=== PATIENT | male | born 1940 | race Caucasian/White ===

== ENCOUNTER 2017-05-28 00:34 | Inpatient (IN) | payer OTHER ==
--- NOTE | 2017-05-28 00:44 | EDPHY ---
H & P Time Seen by Provider: 05/28/17 00:44 HPI/ROS: Chief Complaint: Chest pain HPI: 76-year-old male with a past medical history of coronary artery disease and a LAD stent began having substernal chest pain at about 11 o'clock this evening while in bed. Pain was a 7 8/10. Was in his left chest and he felt some aching in the back of his left arm. Some mild shortness of breath and felt diaphoretic at that time. Patient called EMS. On arrival there [address] elevations in V1 to with depressions in the lateral leads and inferior leads. Cardiac alert was called. He was given 325 mg of aspirin, 1 nitroglycerin sublingual at 12:05 p.m. by EMS. Now the patient states the discomfort is down to about a 2/10. No recent illness. No fevers or chills. No nausea or vomiting or diarrhea. He did have a recent knee replacement 3 weeks ago. He has not had any recent pleuritic chest pain or shortness of breath. ROS: 10 point Review of Systems is negative except as noted in the HPI. PMH: Coronary artery disease, status post stenting, hyperlipidemia, hypertension Social History: No smoking, no alcohol, no recreational drug use Family History: non-contributory Physical Exam: Gen: Awake, Alert, No Distress HEENT: Nose: no rhinorrhea Eyes: PERRLA, EOMI Mouth: Moist mucosa Neck: Supple, no JVD Chest: nontender, lungs clear to auscultation Heart: S1, S2 normal, no murmur Abd: Soft, non-tender, no guarding Back: no CVA tenderness, no midline tenderness Ext: no edema, non-tender Skin: no rash Neuro: CN II-XII intact, Sensation grossly intact, Strength 5/5 in bilateral upper and lower extremities - Medical/Surgical History Hx Asthma: No Hx Chronic Respiratory Disease: No Hx Diabetes: Yes Hx Cardiac Disease: Yes Hx Renal Disease: No Hx Cirrhosis: No Hx Alcoholism: No Hx HIV/AIDS: No Hx Splenectomy or Spleen Trauma: No Other PMH: Bilateral TKA, HTN, hypothyroid - Social History Smoking Status: Never smoked Constitutional: Initial Vital Signs Temperature (C) 36.4 C 05/28/17 00:34 Heart Rate 84 05/28/17 00:34 Respiratory Rate 16 05/28/17 00:34 Blood Pressure 147/99 H 05/28/17 00:34 O2 Sat (%) 96 05/28/17 00:34 O2 Delivery Mode Nasal Cannula O2 (L/minute) 2 Allergies/Adverse Reactions: No Known Allergies Allergy (Unverified 01/29/10 18:16) Home Medications: Medication Instructions Recorded Aspirin [Aspirin 81mg (*)] 81 mg PO DAILY 10/16/15 Levothyroxine [Synthroid 88 mcg 88 mcg PO DAILY06 10/16/15 (*)] Pravastatin Sodium [Pravachol] 40 mg PO HS 10/16/15 Medical Decision Making - Diagnostics EKG Interpretation: ECG time 12:38 a.m., sinus rhythm with a rate of 85, normal axis, there are ST elevations in V1 through V3 with reciprocal changes in V4 through 6 and in leads 2 and AVF consistent with acute STEMI. There are normal intervals. Imaging Results: Chest x-ray shows no acute infiltrates, cardiac silhouette is normal. Interpreted by me. Imaging: I viewed and interpreted images myself ED Course/Re-evaluation: Patient arrived as a cardiac alert at 12:35 p.m.. Hemodynamics were normal. Patient's pain was a 2/10. I reviewed pre-hospital ECGs near consistent with acute anterior STEMI. 0038 ECG is done. Findings are consistent with acute STEMI. Patient pain is a 2/10. Hemodynamics are normal. 0040 Dr. Zarate, cardiology is present in the room. He has evaluated patient. Will take the patient to the laboratory animal caretaker. Chest x-ray shows normal cardiac silhouette, no focal infiltrates. No effusions. Departure - Departure Disposition: [facility] Inpatient Acute Clinical Impression: STEMI (ST elevation myocardial infarction) Condition: Serious Referrals: Patient,NotPresent [Primary Care Provider] - As per Instructions
[2017-05-28] MEDS ORDERED: LIDOCAINE 1% 300 MG/30 ML SDV ONE (00:50)
[2017-05-28] MEDS ORDERED: MIDAZOLAM 2 MG/2 ML VIAL ONE ×3 (00:50→01:34)
[2017-05-28] MEDS ORDERED: fentaNYL 100 MCG/2 ML INJ ONE ×2 (00:50→01:34)
[2017-05-28] MEDS ORDERED: IOPAMIDOL (ISOVUE-370) 150 ML BTL IV ONE (00:51)
[2017-05-28] MEDS ORDERED: BIVALIRUDIN 250 MG/5 ML VIAL IV ONE (01:18)
[2017-05-28] MEDS ORDERED: TICAGRELOR 90 MG TAB ONE (01:57)
[2017-05-28 02:08] LABS: % IMMATURE GRANULYOCYTES 0.5 % (0.0-1.1); ABSOLUTE IMMATURE GRANULOCYTES 0.03 10^3/uL (0.00-0.10); ADD DIFF? NO; ADD MORPH? NO; ADD SCAN? NO; ATYPICAL LYMPHOCYTE FLAG 0 (0-99); FRAGMENT RBC FLAG 0 (0-99); HEMATOCRIT 35.1 % (40.0-51.0); HEMOGLOBIN 11.9 g/dL (13.7-17.5); LEFT SHIFT FLG 0 (0-99); LIPEMIA HEMOLYSIS FLAG 90 (0-99); MEAN CELL HEMOGLOBIN 30.6 pg (27.9-34.1); MEAN CELL HEMOGLOBIN CONCENTR. 33.9 g/dL (32.4-36.7); MEAN CELL VOLUME 90.2 fL (81.5-99.8); PLATELET CLUMPS FLAG 40 (0-99); PLATELET COUNT 132 10^3/uL (150-400); RED BLOOD CELL COUNT 3.89 10^6/uL (4.40-6.38); RED CELL DISTRIBUTION WIDTH 13.1 % (11.5-15.2)
[2017-05-28] MEDS ORDERED: TICAGRELOR 90 MG TAB PO ONE (02:13)
[2017-05-28] MEDS ORDERED: ATROPINE SULFATE 1 MG/10 ML SYR IVP PRN (02:13)
[2017-05-28] MEDS ORDERED: ASPIRIN EC 325 MG TAB PO ONE (02:13)
[2017-05-28] MEDS ORDERED: LORazepam 2 MG/ML INJ IVP PRN (02:13)
[2017-05-28] MEDS ORDERED: NITROGLYCERIN 0.4 MG BTL SL PRN (02:13)
[2017-05-28 02:26] LABS: ANION GAP 8 mEq/L (8-16); CALCIUM 7.9 mg/dL (8.5-10.4); CARBON DIOXIDE 21 mEq/l (22-31); CHLORIDE 107 mEq/L (97-110); CREATININE 1.1 mg/dL (0.7-1.3); GLOMERULAR FILTRATION RATE > 60; GLUCOSE 108 mg/dL (70-100); POTASSIUM 3.9 mEq/L (3.5-5.2); SODIUM 136 mEq/L (134-144)
--- NOTE | 2017-05-28 02:49 | CPEKG ---
Heart Rate: 74 RR Interval: 811 P-R Interval: 192 QRSD Interval: 74 QT Interval: 412 QTC Interval: 457 P [place]: 52 QRS [place]: 50 T Wave [place]: 83 EKG Severity - ABNORMAL ECG - EKG Impression: SINUS RHYTHM EKG Impression: CONSIDER ANTEROSEPTAL INFARCT Electronically Signed By: Mj Javier 28-May-2017 06:26:51
--- NOTE | 2017-05-28 05:38 | CPIP ---
[f rep st] INVASIVE CARDIAC PROCEDURE DATE OF PROCEDURE: 05/28/2017 PROCEDURE: 1. Coronary angiography. 2. Left ventriculography. 3. Stenting of left anterior descending coronary artery with Synergy drug-eluting stents. INDICATION: Acute anterior ST-segment elevation myocardial infarction. ACCESS: Patient was prepped and draped in sterile fashion. 1% lidocaine was used to anesthetize th e right inguinal region. A 6-Djiboutian introducer sheath was placed selectively into the right common femoral artery via modified Seldinger technique. CORONARY ANGIOGRAPHY: A 6-Djiboutian JL4 was advanced to the left main coronary artery and images obtai solomon. The left main coronary artery trifurcated into an LAD, ramus, and circumflex coronary arteries . The left main coronary artery had a discrete distal 40% stenosis present. The left anterior desc ending coronary artery was previously stented in the midvessel. The previously placed stent was wid guerline patent with mild in-stent restenosis. Just proximal to the stent, there was a single discrete 9 9% stenosis present. Just distal to the stent, there was a single discrete 50% stenosis present and in the mid to distal vessel, there is a single discrete 75% stenosis present. The ramus coronary a rtery was relatively small. The ramus coronary artery had an ostial 25% stenosis present. The circ umflex coronary artery was a large vessel, but was nondominant. Circumflex coronary artery had a si ngle discrete 50% stenosis in the proximal segment. A 6-Djiboutian JR4 was advanced to the right mcguire ry artery and images obtained. The right coronary artery was dominant. The right coronary artery h ad a proximal 25% stenosis present. LEFT VENTRICULOGRAPHY: A 6-Djiboutian pigtail catheter was advanced in the left ventricle and images ob tained. Left ventricle was normal size with reduced systolic function. Estimated ejection fraction was 35% to 40%. The anterior and apical segments were hypokinetic. Percutaneous coronary interven tion of the left anterior descending coronary artery. A 6-Djiboutian EBU 3.5 catheter was advanced to t he left main coronary artery and images obtained. Angiography confirmed the presence of high-grade disease involving the left anterior descending coronary artery. A Luge wire was placed in the dista l vessel and position verified by angiography. A 2.5 x 15 Emerge balloon was used to dilate the pro ximal and mid 2 lesions. Followup angiography demonstrated significant residual stenosis. A 2.75 x 16 Synergy drug-eluting stent was placed in the mid 2 lesion deployed. Followup angiography demons trated JEFFERY 3 flow. No residual stenosis across that lesion. A 3.0 x 12 Synergy drug-eluting stent was placed in the mid 1 segment and deployed followup angiography demonstrated JEFFERY 3 flow. No resi dual stenosis. A 3.0 x 16 Synergy drug-eluting stent was then placing in the proximal lesion and de ployed. Followup angiography demonstrated JEFFERY-3 flow and incomplete stent expansion. The proximal and mid 1 stents were post dilated to 3.5 x 20 NC balloon. Followup angiography demonstrated JEFFERY 3 flow. No residual stenosis. COMPLICATIONS: None. CONCLUSIONS: 1. 99% stenosis of the left anterior descending coronary artery. 2. Reduced left ventricular systolic function with an estimated ejection fraction 35% to 40% with a nterior and apical hypokinesis. 3. Status post successful percutaneous coronary intervention of the left anterior descending mcguire ry artery with Synergy drug-eluting stents. /[id number]/MODL
[2017-05-28 06:41] LABS: ALANINE AMINOTRANSFERASE 38 IU/L (21-72); ALBUMIN 3.1 g/dL (3.5-5.0); ALKALINE PHOSPHATASE 70 IU/L (38-126); ANION GAP 8 mEq/L (8-16); ASPARTATE AMINOTRANSFERASE 188 IU/L (17-59); BILIRUBIN,TOTAL 0.8 mg/dL (0.1-1.4); BILIRUBIN-CONJUGATED 0.6 mg/dL (0.0-0.5); BILIRUBIN-UNCONJUGATED 0.2 mg/dL (0.0-1.1); CALCIUM 7.9 mg/dL (8.5-10.4); CARBON DIOXIDE 18 mEq/l (22-31); CHLORIDE 112 mEq/L (97-110); CHOLESTEROL 142 mg/dL (140-220); CHOLESTEROL/HDL RATIO 4.73 RATIO (1.00-4.97); GLOMERULAR FILTRATION RATE > 60; GLUCOSE 118 mg/dL (70-100); HIGH DENSITY LIPOPROTEIN 30 mg/dL (40-65); LDL/HDL RATIO 2.97 RATIO (1.00-3.64); LOW DENSITY LIPOPROTEIN 89 mg/dL (80-100); NON-HIGH DENSITY LIPOPROTEIN 112 mg/dL (90-129); POTASSIUM 5.1 mEq/L (3.5-5.2); SODIUM 138 mEq/L (134-144); SPECIMEN HEMOLYSIS 117; TOTAL PROTEIN 5.6 g/dL (6.3-8.2); TRIGLYCERIDE 118 mg/dL (40-150); VERY LOW DENSITY LIPOPROTEINS 23 mg/dL (8-25)
[2017-05-28 07:12] LABS: CK-MB INTERPRETATION POSITIVE (NEGATIVE)
--- NOTE | 2017-05-28 08:58 | GHP ---
[f rep st] HISTORY AND PHYSICAL DATE OF ADMISSION: 05/28/2017 CHIEF COMPLAINT: Chest pain. HISTORY OF PRESENT ILLNESS: The patient is a 76-year-old gentleman with known coronary artery disea se status post percutaneous coronary intervention of his left anterior descending coronary artery in 2009 who presents with a chief complaint of chest pain. The patient was in his usual state of heal th until the day of admission, when he was going to bed around 11 o'clock. At that time, he began t o experience chest pain described as an ache deep to his left pectoral region extending into his lef t arm. The discomfort was associated with nausea, vomiting, and diaphoresis. When his symptoms did not improve, he activated EMS and was brought to the emergency department for further evaluation. In the emergency department, he had an EKG performed, demonstrating anterior ST-segment elevation. We are consulted to help in the further management of this patient. The patient has known coronary artery disease and is status post stenting of his left anterior descending coronary artery in 2009. Since this time, he has remained moderately to highly active and has not had symptoms of angina unt il the evening of admission. The patient has been taking his aspirin, Lipitor and levothyroxine on a regular basis. He denies symptoms of palpitations, orthopnea and PND. PAST MEDICAL HISTORY: 1. Coronary artery disease. 2. Hyperlipidemia. 3. Hypothyroidism. MEDICATIONS: Please see medicine reconciliation form. SOCIAL HISTORY: Patient lives with his . He does not smoke. He denies problems with alcohol. FAMILY HISTORY: Noncontributory. REVIEW OF SYSTEMS: A 10-point review of systems is negative, except as noted in HPI. PHYSICAL EXAMINATION: GENERAL: Patient is resting in bed. He is continuing to have symptoms of ch est discomfort. His chest discomfort is somewhat improved with nitroglycerin use. VITAL SIGNS: Te mperature is afebrile. Pulse is 84, blood pressure 147/99, SaO2 is 96% on 2 L nasal cannula. HEENT : Normocephalic, atraumatic. Extraocular muscles intact. NECK: No JVD. No bruits. LUNGS: Cheyanne r to auscultation bilaterally. CARDIOVASCULAR: Regular rate and rhythm S1, S2. Positive S4. ABDO MEN: Soft, nontender. Normoactive bowel sounds. EXTREMITIES: No clubbing, cyanosis, or edema. N EURO: Patient is awake, alert and oriented x3. The remainder of the physical exam is limited secon anusha to the acute nature of the patient's medical illness. LABORATORY: White blood cell count 6.30, hemoglobin 11.9, hematocrit 35.1, platelet count 132. Sod ium 136, potassium 3.9, chloride 107, CO2 21, BUN 23, creatinine 1.1. Troponin 1.130. EKG demonstr ates sinus rhythm. The EMS EKG demonstrates sinus rhythm with anterior ST-segment elevation. ASSESSMENT AND PLAN: The patient is a 76-year-old gentleman with known coronary artery disease who presents with an acute anterior ST-segment elevation myocardial infarction. Reviewed risks and bene fits of cardiac catheterization with the patient's . Will arrange to have this performed emerge ntly. /[id number]/MODL
--- NOTE | 2017-05-28 09:12 | CPEKG ---
Heart Rate: 78 RR Interval: 769 P-R Interval: 184 QRSD Interval: 74 QT Interval: 392 QTC Interval: 447 P Blairs: 59 QRS Blairs: 57 T Wave Blairs: 96 EKG Severity - ABNORMAL ECG - EKG Impression: SINUS RHYTHM EKG Impression: ABNORMAL T, CONSIDER ISCHEMIA, ANT-LAT LEADS Electronically Signed By: Juan Manuel Serrano 28-May-2017 10:08:00
[2017-05-28] MEDS: CARVEDILOL 3.125 MG TAB PO SCH ×2 (09:16→17:58)
[2017-05-28] MEDS: ATORVASTATIN CALCIUM 40 MG TAB PO SCH (09:17)
[2017-05-28] MEDS: ONDANSETRON 4 MG/2 ML VIAL IVP PRN ×2 (11:10→16:38)
--- NOTE | 2017-05-28 12:30 | PDCARPN ---
Cardiology Progress Note Assessment/Plan: STEMI- stable without recurrent angina, arrhythmias, or evidence of CHF. Evolutionary changes on ECG. Transfer to PCU. Continue aspirin, beta steph, and DAPT. Coronary Artery Disease- history of PCI of the LAD in 2009; catheterization last night demonstrated high-grade stenosis at the proximal and distal ends of the stented segment of the LAD as well as a high-grade stenosis at the junction of the mid and distal LAD; all 3 sites treated with PCI and placement of single drug-coated stents. RCA and circumflex without significant disease. Aggressive secondary prevention. Ischemic Cardiomyopathy- LVEF 35-40% with LAD territory hypokinesis; EF was documented as normal by echo in 2014. Add low-dose AMOR inhibitor. Hopefully, will have some improvement in LV function next several weeks. Hypertension- blood pressure okay at present. Continue to monitor on combination of beta steph and AMOR inhibitor. Hyperlipidemia- on chronic therapy with pravastatin. Had myalgias with other statin medications. Will increase dose to 80 mg daily in effort to reduce LDL from 89 to a target of < 70. 05/28/17 12:26 Subjective: No chest pain or dyspnea. Reviewed/Discussed With: family Objective: Vital Signs (8 Hrs) Temp Pulse Resp BP Pulse Ox 05/28/17 12:00 83 16 135/80 H 97 05/28/17 11:00 77 13 127/73 H 93 05/28/17 10:00 81 13 136/70 H 92 05/28/17 08:00 37.1 C 76 15 140/75 H 98 05/28/17 07:00 75 14 148/82 H 99 05/28/17 06:58 75 14 149/82 H 98 05/28/17 05:58 76 14 125/64 H 98 05/28/17 05:00 72 14 120/71 96 Intake/Output (24 Hrs) 05/27/17 05/28/17 05/29/17 05:59 05:59 05:59 Intake Total 100 Output Total 150 200 Balance -50 -200 Intake: Oral (ml) 100 Output: Urine (ml) 150 200 Urinal 150 200 Other: Weight 79.379 kg Number of Voids Toilet 1 Number of Stools Toilet 1 Result Diagrams: 05/28/17 02:00 05/28/17 06:15 Cardiac Labs: Cardiac Lab Results (72 Hrs) 05/28/17 05/28/17 06:15 02:00 CK-MB (CK-2) Fraction 144.00 H Troponin I 52.500 H 1.130 H - Physical Exam Constitutional: WDWN, no apparent distress Eyes: anicteric sclera Ears, Nose, Mouth, Throat: moist mucous membranes Cardiovascular: regular rate and rhythm, no murmurs, no rubs, no gallops Respiratory: clear to auscultate bilat Gastrointestinal: normoactive bowel sounds, no tenderness, no masses Skin: no rashes, no edema Neurologic: AAOx3 Psychiatric: not anxious ICD10 Worksheet Patient Problems: Problems Problem Status Onset STEMI (ST elevation myocardial infarction) Acute Failure of total knee arthroplasty Acute S/P total knee arthroplasty Acute
[2017-05-28] MEDS ORDERED: PERFLUTREN LIPID MICROSPHERES 1.1 MG/ML VIAL IV ONE (14:00)
[2017-05-28] MEDS: LISINOPRIL 5 MG TAB PO SCH (14:18)
[2017-05-28] MEDS: TICAGRELOR 90 MG TAB PO SCH ×2 (14:20→19:55)
[2017-05-28 15:04] LABS: CK-MB INTERPRETATION POSITIVE (NEGATIVE)
--- NOTE | 2017-05-28 17:37 | ECHO ---
[id number] + + [address] : : [place] [address] : : [phone] + + Adult Echocardiographic Report + ------+ :Name: BEBETO CONTRERAS EStudy Date: 05/28/2017 01:22 PM : : Hospital Admission Number: [id number] Locatio n: 253: :: 1940 Gender: Male Height: 69 in : :Age: 76 yrs Race: WH Weight: 190 lb : :Reason For Study: LVFX : : BSA: 2.0 meters 2 : :History: CAD, s/p NM and LAD PCI : + ------+ MMode/2D Measurements \T\ Calculations IVSd: 0.99 cm RVDd: 2.7 cm FS: 23.3 % Ao root diam: LVPWd: 1.1 cm LVIDd: 4.5 cm EDV(Teich): 3.5 cm LVIDs: 3.4 cm 90.4 ml ESV(Teich): 48.1 ml EF(Teich): 46.8 % LVLd ap4: 10.0 cm SV(MOD-sp4): EDV(MOD-sp4): 82.0 ml 171.0 ml LVLs ap4: 7.7 cm ESV(MOD-sp4): 89.0 ml EF(MOD-sp4): 48.0 % Normal Measurement Values: + + :LVIDd (3.5-5.7cm) IVSd (0.6-1.1cm) LVPWd (0.6-1.1cm) Aortic Root (2.0-3.7cm)Left Atrium (1.5-4.0cm): :LV Vol(d) (76-115ml) LV Vol(s) (29-48ml) Ejec Fraction (50-65%)PV Vinay (0.6- 1.2m/s) TV Vinay (0.4-1.0m/s) : :MV E Vinay (0.8-1.0m/s)MV A Vinay (0.3-1.0m/s)LVOT Vinay (0.7-1.2m/s) Asc Ao Vinay ( 0.9-1.8m/s) : + + Doppler Measurements \T\ Calculations MV E max vinay: Ao V2 max: LV V1 max: PA V2 max: 44.9 cm/sec 92.3 cm/sec 80.5 cm/sec 79.0 cm/sec MV A max vinay: Ao max PG: LV V1 max PG: PA max P.4 cm/sec 3.4 mmHg 2.6 mmHg 2.5 mmHg MV E/A: 0.54 Left Ventricle The left ventricle is normal in size. There is borderline concentric left ventricular hypertrophy. Ejection Fraction = 35-40%. Left ventricular systolic function is moderately reduced. Mid anteroseptal, apical septal, apical inferior and apical anterior akinesis. Definity used to rule out apical thrombus. No thrombus detected. False tendon noted in the LV. Right Ventricle The right ventricle is normal in size and function. Atria The left atrial size is normal. Right atrial size is normal. Mitral Valve The mitral valve is normal in structure and function. There is no mitral valve stenosis. There is mild mitral regurgitation. Tricuspid Valve The tricuspid valve is normal in structure and function. There is no tricuspid stenosis. There is trace tricuspid regurgitation. Aortic Valve The aortic valve is trileaflet. There is no aortic stenosis. There is no aortic insufficiency. Pulmonic Valve The pulmonic valve is normal in structure and function. Trace pulmonic valvular regurgitation. Great Vessels The aortic root is normal size. Pericardium/Pleural There is no pericardial effusion. Conclusion A two-dimensional transthoracic echocardiogram with M-mode and Doppler was performed. .245mg of Definity administered to rule out apical clot and anuerysm. There is borderline concentric left ventricular hypertrophy. Ejection Fraction = 35-40%. Left ventricular systolic function is moderately reduced. Mid anteroseptal, apical septal, apical inferior and apical anterior akinesis. Definity used to rule out apical thrombus. No thrombus detected. False tendon noted in the LV. There is mild mitral regurgitation. There is trace tricuspid regurgitation. Trace pulmonic valvular regurgitation. Final Reading Physician: Irineo James signed on 05/28/2017 05:35 PM Ordering Physician: Jorge Butts Performed By: Kaity Roblero
[2017-05-28] MEDS: PRAVASTATIN SODIUM 40 MG TAB PO SCH (19:54)
[2017-05-28 20:49] LABS: CK-MB INTERPRETATION POSITIVE (NEGATIVE)
[2017-05-29 05:38] LABS: ANION GAP 10 mEq/L (8-16); CARBON DIOXIDE 22 mEq/l (22-31); CHLORIDE 108 mEq/L (97-110); CREATININE 1.2 mg/dL (0.7-1.3); GLOMERULAR FILTRATION RATE 59; GLUCOSE 112 mg/dL (70-100); POTASSIUM 4.3 mEq/L (3.5-5.2); SODIUM 140 mEq/L (134-144)
[2017-05-29] MEDS: LEVOTHYROXINE 88 MCG TAB PO SCH (07:06)
[2017-05-29] MEDS: ASPIRIN EC 81 MG TAB PO SCH (08:39)
[2017-05-29] MEDS: TICAGRELOR 90 MG TAB PO SCH ×2 (08:39→21:31)
[2017-05-29] MEDS: ATORVASTATIN CALCIUM 40 MG TAB PO SCH (08:39)
--- NOTE | 2017-05-29 09:25 | SOAPPROG ---
SHARON Progress Note Assessment/Plan: Assessment: Cardiology ([place]) 1. Anterior STEMI status post drug eluting stents x3 to LAD. On dual anti- platelet therapy with aspirin 81 mg and Brilinta. Plavix genetic testing is pending. Troponins have been downtrending. 2. Known coronary artery disease history of LAD stenting in 2009. Patient tolerated Plavix at that time. 3. Ischemic cardiomyopathy with left ventricular ejection fraction of 35-40%. There is anterior, inferior and apical akinesis. Contrast echocardiogram yesterday was negative for left ventricular thrombus. He has been started on low -dose beta-steph and AMOR-inhibitor this currently limited by low blood pressure. 4. New onset atrial fibrillation with rapid ventricular rates from 105 to 150 beats per minute. This episode started at 7:45 a.m. this morning. Patient states he has a prior history of atrial fibrillation but has never been on oral anticoagulation. He states his episodes generally occur approximately once monthly and last less than 1 hour. 5. Hyperlipidemia. Patient's pravastatin was increased to 80 mg yesterday. He has history of statin induced myalgia from Lipitor among others. It is unclear why he is also getting Lipitor in addition to pravastatin right now. 6. Hypothyroid. Plan: Discussed w/ Dr. Juarez 1. Start amiodarone iv protocol with 150 mg bolus followed iv gtt. 2. Will defer starting anticoagulation in the setting of DAPT. 2. Give carvedilol. 3. Hold lisinopril 2/2 hypotension. 4. 2 statins apparently being given simultaneously. Stop atorvastatin, continue pravastatin 80 mg. 5. NPO after midnight. Consider cardioversion if still in afib tomorrow. 05/29/17 09:56 Subjective: Chief complaint is fatigue today. He denies any repeat chest discomfort, shortness of breath, presyncope or syncope. Objective: Vital Signs Temp Pulse Resp BP Pulse Ox 36.4 C 74 15 102/61 96 05/29/17 07:09 05/29/17 07:09 05/29/17 07:09 05/29/17 07:09 05/29/17 07:09 Laboratory Results 05/28/17 02:00 05/29/17 04:26 05/28/17 05/29/17 05/30/17 05:59 05:59 05:59 Intake Total 100 300 Output Total 150 200 Balance -50 100 Physical Exam - Physical Exam General Appearance: WD/WN, alert, no apparent distress Respiratory: chest non-tender, lungs clear, normal breath sounds Cardiac/Chest: normal peripheral pulses, regular rate, rhythm Peripheral Pulses: 2+: dorsalis-pedis (R), dorsalis-pedis (L) Abdomen: normal bowel sounds, non-tender, soft Extremities: No swelling Neuro/Psych: no motor/sensory deficits, alert, normal mood/affect, oriented x 3 ICD10 Worksheet Patient Problems: Problems Problem Status Onset STEMI (ST elevation myocardial infarction) Acute Failure of total knee arthroplasty Acute S/P total knee arthroplasty Acute
[2017-05-29] MEDS: CARVEDILOL 3.125 MG TAB PO SCH ×3 (09:32→18:40)
[2017-05-29] MEDS: LISINOPRIL 5 MG TAB PO SCH (09:33)
[2017-05-29] MEDS ORDERED: AMIODARONE HCL 200 ML IV ONE (09:45)
[2017-05-29] MEDS ORDERED: AMIODARONE HCL 100 ML IV ONE (09:45)
[2017-05-29] MEDS ORDERED: NS 250 ML IV ONE (10:41)
[2017-05-29] MEDS ORDERED: AMIODARONE HCL 540 MG in D5W 300 ML IV ONE (17:04)
[2017-05-29] MEDS: PRAVASTATIN SODIUM 40 MG TAB PO SCH (21:31)
[2017-05-29] MEDS: TEMAZEPAM 15 MG CAP PO PRN (23:41)
[2017-05-30] MEDS: LEVOTHYROXINE 88 MCG TAB PO SCH (06:21)
[2017-05-30] MEDS ORDERED: CARVEDILOL 3.125 MG TAB PO SCH (08:00)
[2017-05-30] MEDS: ASPIRIN EC 81 MG TAB PO SCH (08:33)
[2017-05-30] MEDS: TICAGRELOR 90 MG TAB PO SCH ×2 (08:33→20:44)
--- NOTE | 2017-05-30 08:44 | CPEKG ---
Heart Rate: 62 RR Interval: 968 P-R Interval: 184 QRSD Interval: 76 QT Interval: 524 QTC Interval: 533 P Morton: 72 QRS Morton: 67 T Wave Morton: 132 EKG Severity - ABNORMAL ECG - EKG Impression: SINUS RHYTHM EKG Impression: PROLONGED QT INTERVAL EKG Impression: CONSIDER ANT-SEPT INFARCT, POSSIBLY RECENT Electronically Signed By: Bj Zarate 31-May-2017 17:32:14
--- NOTE | 2017-05-30 09:58 | SOAPPROG ---
[facility] Progress Note Assessment/Plan: Assessment: 1. Status post anterior wall myocardial infarction. 2. Ischemic cardiomyopathy ejection fraction 35-40%. 3. Post GA persistent atrial fibrillation. 4. Hyperlipidemia. Procedures to date: 05/28/2017 left heart catheterization with PCI and stenting. 05/29/2017 echocardiogram with Definity revealing ischemic cardiomyopathy ejection fraction of 35-40% with no evidence of apical thrombus. Impression: Day 2 status post anterior wall myocardial infarction. EKG this morning consistent with evolving anterior wall myocardial infarction. Patient has reverted to sinus rhythm and remains on amiodarone drip. Medical therapy for reduced LV function has begun with borderline/stable hemodynamics. Overall he is feeling well though anxious. Recommendations: Change to oral amiodarone after IV load. Continue dual antiplatelet therapy uninterrupted for at least 1 year. Continue beta-steph, AMOR-inhibitor for LV remodeling. Cardiac Rehabilitation. Continued use of statin therapy for for risk reduction. Goal LDL cholesterol less than 70 mg/dL. With single episode of atrial fibrillation, dual antiplatelet therapy will be used for thrombotic risk reduction. Patient would benefit from long-term anticoagulation. Consideration for NOAC plus plavix at 30 days. Triple therapy at this time not without risk. Patient will be followed up at [facility] 05/30/17 09:53 05/30/17 10:01 Subjective: No chest pain, shortness of breath. Episode of palpitations yesterday. No PND orthopnea. He is anxious and concerned about the future. Objective: Medications Generic Name Dose Route Start Last Admin Trade Name Freq PRN Reason Stop Dose Admin Levothyroxine Sodium 88 mcg 05/29/17 06:00 05/30/17 06:21 Synthroid PO 11/25/17 05:59 88 mcg DAILY06 [facility] Amiodarone HCl 540 mg/ 300 mls @ 16.667 mls/hr 05/29/17 17:04 05/29/17 17:10 Dextrose IV 05/30/17 11:03 300 mls ONCE ONE Aspirin Buffered 81 mg 05/29/17 09:00 05/30/17 08:33 Aspirin Ec PO 11/25/17 08:59 81 mg DAILY [facility]INNE Carvedilol 3.125 mg 05/29/17 18:00 05/29/17 18:40 Coreg PO 11/25/17 17:59 3.125 mg BIDMEAL [facility] Lisinopril 5 mg 05/28/17 12:30 05/29/17 09:33 Zestril PO 11/24/17 12:29 Not Given DAILY [facility] Pravastatin Sodium 40 mg 05/28/17 21:00 05/29/17 21:31 Pravachol PO 11/24/17 20:59 40 mg HS [facility] Ticagrelor 90 mg 05/28/17 14:14 05/30/17 08:33 Brilinta PO 11/24/17 14:13 90 mg BID [facility] Vital Signs Temp Pulse Resp BP Pulse Ox 36.7 C 71 16 104/57 L 96 05/30/17 08:00 05/30/17 08:00 05/30/17 08:00 05/30/17 08:00 05/30/17 08:00 Laboratory Results 05/28/17 02:00 05/29/17 04:26 05/29/17 05/30/17 05/31/17 05:59 05:59 05:59 Intake Total 300 450 200 Output Total 200 Balance 100 450 200 Laboratory Tests 05/28/17 05/28/17 05/28/17 06:15 14:28 20:20 Creatine Kinase 1553 H 1320 H 932 H LDL Cholesterol, Calc 89 - Time Spent With Patient Time Spent With Patient: 30 minutes Physical Exam - Physical Exam General Appearance: alert, no apparent distress EENT: PERRL/EOMI, normal ENT inspection Neck: non-tender, full range of motion Respiratory: chest non-tender, lungs clear, normal breath sounds Cardiac/Chest: normal peripheral pulses, regular rate, rhythm, No edema, No gallop, No JVD Peripheral Pulses: 1+: carotid (R), carotid (L), femoral (R), femoral (L), dorsalis-pedis (R), dorsalis-pedis (L) Abdomen: normal bowel sounds, non-tender, soft, No organomegaly Back: Normal inspection Skin: normal color, warm/dry, No cyanosis, No rash Lymphatic: no adenopathy Extremities: normal range of motion, non-tender, other (Surgical scars of bilateral knees well healed), No pedal edema, No calf tenderness Neuro/Psych: no motor/sensory deficits, alert, normal mood/affect ICD10 Worksheet Patient Problems: Problems Problem Status Onset 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
[2017-05-30] MEDS: LISINOPRIL 5 MG TAB PO SCH (10:31)
[2017-05-30] MEDS: CARVEDILOL 3.125 MG TAB PO SCH ×2 (10:32→18:09)
[2017-05-30] MEDS: LISINOPRIL 2.5 MG TAB PO SCH (10:35)
[2017-05-30] MEDS: SENNOSIDES/DOCUSATE SODIUM TAB PO PRN (18:09)
[2017-05-30] MEDS: PRAVASTATIN SODIUM 40 MG TAB PO SCH (20:44)
[2017-05-31] MEDS: TEMAZEPAM 15 MG CAP PO PRN (00:29)
[2017-05-31] MEDS: LEVOTHYROXINE 88 MCG TAB PO SCH (05:21)
[2017-05-31] MEDS: SENNOSIDES/DOCUSATE SODIUM TAB PO PRN (05:21)
[2017-05-31] MEDS: ASPIRIN EC 81 MG TAB PO SCH (08:58)
[2017-05-31] MEDS: CARVEDILOL 3.125 MG TAB PO SCH (08:58)
[2017-05-31] MEDS: TICAGRELOR 90 MG TAB PO SCH (08:58)
[2017-05-31] MEDS: LISINOPRIL 5 MG TAB PO SCH (08:58)
[2017-05-31] MEDS: LISINOPRIL 2.5 MG TAB PO SCH (09:00)
[2017-05-31] MEDS ORDERED: AMIODARONE HCL 200 MG TAB PO SCH (09:00)
[2017-05-31 10:38] VITALS: BP 108/61; PULSE 75; RESP 14; TEMP 97.6; O2SAT 96
--- NOTE | 2017-05-31 13:58 | GDS ---
[f rep st] DISCHARGE SUMMARY DISCHARGE DIAGNOSES: 1. Coronary artery disease. The patient has known coronary artery disease and is status post stenting of his left anterior descending coronary artery in 2009. He presented on 05/28/[address]-segment elevation myocardial infarction. He was treated with percutaneous coronary intervention of his left anterior descending coronary artery using Synergy drug-eluting stents. He will be continued on secondary prevention using aspirin, Brilinta, Coreg, lisinopril and pravastatin. 2. Acute anterior ST-segment elevation myocardial infarction. The patient presented with an acute anterior ST-segment elevation myocardial infarction. He was taken to the cardiac catheterization laboratory where he was found to have a 99% stenosis of his left anterior descending coronary artery. He was treated with percutaneous coronary intervention of his left anterior descending coronary artery using Synergy drug-eluting stents. His peak CPK was 1500. His left ventricular systolic function post intervention was 35% to 40%. The patient denied symptoms of angina and congestive heart failure during the hospitalization. 3. Cardiomyopathy. The patient has an ischemic cardiomyopathy with an ejection fraction of 35% to 40%. I am optimistic that his left ventricular systolic function will improve given his early presentation and only mild elevation of CPK during the event. Would recommend repeat imaging in approximately a month to calculate his left ventricular systolic function. /[id number]/MODL Complete re-dictation #[id number] ROBE
[2017-05-31 16:03] LABS: 2C19S INTERPRETATION See Comments
--- NOTE | 2017-05-31 20:45 | GDS ---
[f rep st] DISCHARGE SUMMARY DISCHARGE DIAGNOSES: 1. Acute anterior ST-segment elevation myocardial infarction. The patient is a 76-year-old gentlem an with known coronary artery disease status post stenting of the left anterior descending coronary artery in 2009 who presented with an acute anterior ST-segment elevation myocardial infarction. He was taken to the cardiac catheterization laboratory for risk stratification. Coronary angiography w as notable for a 99% stenosis just proximal to the previous LAD stent. The patient was treated with percutaneous coronary intervention of the left anterior descending coronary artery using 3 PROMUS d rug-eluting stents. His peak CPK post procedure was 1553. His left ventricular systolic function p ost procedure was 35% to 40%. The patient denied symptoms of angina and congestive heart failure du ring his hospital stay. He will be continued on secondary prevention using aspirin, Brilinta, Coreg , lisinopril, and pravastatin. 2. Cardiomyopathy. The patient has an ischemic cardiomyopathy with an ejection fraction of 35% to 40%. I am hopeful that his ejection fraction will improve with revascularization given he presented early and had a low peak CPK bump of 1553. During the hospitalization patient denied symptoms of c ongestive heart failure. He will be continued on Coreg and lisinopril for his cardiomyopathy. 3. Hyperlipidemia. The patient has a history of hyperlipidemia. He has been managed with pravasta tin 40 mg daily. His LDL on admission was 89. His goal LDL would be less than 70. Will change pra vastatin to Lipitor 40 mg daily. Recommend repeat FLP and LFTs in 3-6 months period of time. 4. Atrial fibrillation. The patient went into atrial fibrillation on 05/29/2017, 1 day post proced ure. He was started on IV amiodarone and spontaneously converted to normal sinus rhythm. The patie nt denies a previous history of atrial fibrillation but does report intermittent palpitations sugges tive of premature beats. At this time, we will anticoagulate with aspirin and Brilinta, as I suspec t this is a situational episode of atrial fibrillation. Would obtain a Holter monitor as an outpati ent, and if occult atrial fibrillation identified, initiate long-term anticoagulation. SUMMARY OF PRESENTATION AND COURSE: The patient is a 76-year-old gentleman with known coronary camden ry disease who presented on 05/28/[address]-segment elevation myocardial infarc tion. He was taken to the cardiac catheterization laboratory for risk stratification. Coronary ang iography demonstrated 99% stenosis of the left anterior descending coronary artery just proximal to the previously placed stent. The patient was treated with percutaneous coronary intervention of the left anterior descending coronary artery using 3 Synergy drug-eluting stents. Post procedurally hi s CPK increased to 1553. His echocardiogram postprocedure demonstrated an EF of 35% to 40% with ant eroapical hypokinesis. His postprocedural course was complicated by an episode of atrial fibrillati on which converted to normal sinus rhythm after IV amiodarone therapy. The patient denied further e pisodes of angina as well as symptoms of congestive heart failure during the postprocedural period. DISCHARGE MEDICATIONS: Please see medicine reconciliation form. PHYSICAL EXAMINATION AT TIME OF DISCHARGE: GENERAL: Patient is resting comfortably in bed. He did not appear to be in acute distress. He had walked a mile the day previously on the pod without dif ficulty. VITALS: Temperature afebrile, pulse is 75, blood pressure 108/61, respiratory rate is 14, SaO2 96% on room air. LUNGS: Clear to auscultation bilaterally. CARDIOVASCULAR: Regular rate an d rhythm S1, S2. No murmurs, rubs, or gallops appreciated. ABDOMEN: Soft, nontender. Normoactive bowel sounds. Right inguinal access site, no hematoma, no ecchymosis, 2+ dorsalis pedis pulse. No clubbing, cyanosis or edema. NEURO: Patient awake, alert and oriented x3. LABORATORY: At the time of discharge, sodium 140, potassium 4.3, chloride 108, CO2 of 22, BUN 14, c reatinine 1.2. White blood cell count 6.30, hemoglobin 11.9, hematocrit 35.1, platelet count 132. ARRANGEMENTS FOR FOLLOWUP CARE: The patient will follow up with [facility] in approximately 7-10 days period of time. A call has been made to [facility] to arrange followup. Would chapincito shelby recommend a Holter monitor as an outpatient to look for occult atrial fibrillation. /[id number]/MODL
[2017-06-01] MEDS ORDERED: ATORVASTATIN CALCIUM 40 MG TAB PO SCH (09:00)
--- NOTE | 2017-06-01 15:54 | CPEKG ---
Heart Rate: 85 RR Interval: 706 P-R Interval: 196 QRSD Interval: 76 QT Interval: 384 QTC Interval: 457 P Blanco: 72 QRS Blanco: 62 T Wave Blanco: 110 EKG Severity - ABNORMAL ECG - EKG Impression: SINUS RHYTHM EKG Impression: CONSIDER ANTEROSEPTAL INFARCT EKG Impression: REPOL ABNRM SUGGESTS ISCHEMIA, ANT-LAT LEADS Electronically Signed By: Amol Ibarra 02-Jun-2017 10:58:14
== END 2017-05-31 13:27 | disposition home or self-care (01) | DRG 246 ==
LOC: EDUNIT# → F2N 02:15 → F2W 22:15
PROVIDERS: ADMIT Internal Medicine Cardiovascular Disease; ATTEND Internal Medicine Cardiovascular Disease
PROC: B2151ZZ Fluoroscopy of Left Heart using Low Osmolar Contrast (ICD-10-PCS; principal; 2017-05-28)
PROC: 4A023N7 Measurement of Cardiac Sampling and Pressure, Left Heart, Percutaneous Approach (ICD-10-PCS; principal; 2017-05-28)
PROC: B2111ZZ Fluoroscopy of Multiple Coronary Arteries using Low Osmolar Contrast (ICD-10-PCS; principal; 2017-05-28)
PROC: 027037Z Dilation of Coronary Artery, One Artery with Four or More Drug-eluting Intraluminal Devices, Percutaneous Approach (ICD-10-PCS; principal; 2017-05-28)
DX: I21.09 ST elevation (STEMI) myocardial infarction involving other coronary artery of anterior wall (principal); I25.10 Atherosclerotic heart disease of native coronary artery without angina pectoris; Z95.5 Presence of coronary angioplasty implant and graft; I48.1 Persistent atrial fibrillation; I10 Essential (primary) hypertension; E78.5 Hyperlipidemia, unspecified; E03.9 Hypothyroidism, unspecified; Z96.653 Presence of artificial knee joint, bilateral
CPT/HCPCS: 81225-90; C1725; C1760; C1769; C1874; C1887; C9606; J0282; J0583; J1644; J2250; J2405; J3010; Q9957; Q9967